=== PATIENT | male | born 1970 | race African-American/Black ===

== ENCOUNTER 2016-09-11 22:30 | Emergency (ER) | payer OTHER ==
--- NOTE | ~2016-09-11 | CR72 ---
[facility] A Service of [facility] RADIOLOGY TEXT RESULTS PATIENT: DL WOODWARD LOCATION: [facility] : 74 UNIT #: [id number] AGE: [address]: Yung Amador MD SEX: M ORDER DR: [id number] [facility]. [place], [place] [address] [id number] MR#: [id number] Acc #: [id number] NAME: DL WOODWARD. : 1970 SEX: M STUDY DATE/TIME: 09/11/2016 22:59 UNIT: [facility] ROOM: STUDY DESCRIPTION: CR Chest Single View Portable Attending Physician: Yung Amador M.D. Referring Physician: David Self Referred Ordering Physician: Ed Joe Hastings M.D. Primary Care Physician: No Primary Care Physician MEDICAL IMAGING REPORT This report is preliminary unless electronic signature is present EXAM Frontal chest, 09/11/2016. INDICATION Chest pain in a 46-year-old male, shortness of air, symptoms 2 weeks. Left-sided chest pain and weakness. TECHNIQUE Frontal chest was performed. COMPARISON STUDIES No comparisons. FINDINGS Cardiac silhouette within normal limits. Vascularity is unremarkable. Lungs are clear. IMPRESSION Borderline cardiac size, otherwise negative frontal chest. We have no comparisons. Dictated by... Burton Souza M.D. THIS IS AN ELECTRONICALLY VERIFIED REPORT Burton Souza M.D. at 09/12/2016 9:58 PM JAROD/seamus TD: 09/12/2016 13:17 JOB #: [id number] [facility] A Service of [facility] RADIOLOGY TEXT RESULTS PATIENT: DL WOODWARD LOCATION: [facility] : 74 UNIT #: [id number] AGE: [address]: Yung Amador MD SEX: M ORDER DR: MEDICAL IMAGING REPORT Page 1 of 1 COPY
--- NOTE | ~2016-09-11 | EKG ---
PATIENT: DL WOODWARD UNIT #: [id number] Ventricular Rate: 91 BPM Atrial Rate: 91 BPM P-R Interval: 168 ms QRS Duration: 98 ms Q-T Interval: 364 ms QTC Calculation(Bezet): 447 ms P Fairplay: 27 degrees Calculated R Fairplay: -6 degrees Calculated T Fairplay: 13 degrees Diagnosis Line: Normal sinus rhythm Diagnosis Line: Minimal voltage criteria for LVH, may be normal Diagnosis Line: variant Diagnosis Line: Otherwise normal ECG Diagnosis Line: No previous ECGs available Diagnosis Line: Confirmed by ANTHONY BRANDT MD ([id number]) on 09/13/2016 Diagnosis Line: 10:57:07 PM INTERPRETING MD: RIKKI PAULA
[2016-09-12] MEDS ORDERED: NO MEDICATIONS (00:48)
[2016-09-12 00:50] LABS: BASOPHIL# 0.1 X10e3 (0-0.3); BASOPHIL% 0.7 % (0-2.5); EOSINOPHIL# 0.1 X10e3 (0-0.7); HEMATOCRIT 46.1 % (38.0-50.0); HEMOGLOBIN 14.9 gm/dL (13.0-16.0); LYMPHOCYTE# 3.4 X10e3 (1.0-3.5); LYMPHOCYTE% 43.2 % (17.0-45.0); MEAN CELL VOLUME 85.1 FL (83-96); MEAN CORPUSCULAR HEMOGLOBIN 27.6 PG (28-34); MEAN CORPUSCULAR HGB CONC 32.4 g/dL (30-36); MEAN PLATELET VOLUME 9.1 FL (6.5-11.5); MONOCYTE# 0.6 X10e3 (0-1.0); MONOCYTE% 7.4 % (3.0-12.0); NEUTROPHIL# 3.8 X10e3 (1.5-7.1); NEUTROPHIL% 47.7 % (40-75); PLATELET COUNT 169 X10e3 (140-420); RED BLOOD COUNT 5.42 X10e (3.90-5.60); WHITE BLOOD COUNT 7.9 X10e3 (4.0-10.5)
[2016-09-12 00:54] LABS: DIFF IND NO
[2016-09-12 00:54] LABS: POC - CKMB 1.5 ng/mL (0.0-7.9); POC - TROPONIN <0.05 ng/mL (<=0.05)
[2016-09-12 01:03] LABS: PROTHROMBIN TIME (PATIENT) 10.6 SECONDS (9.6-11.5)
[2016-09-12 01:14] LABS: ALBUMIN SERUM 4.7 g/dL (3.5-5.0); BILIRUBIN, DIRECT 0.1 mg/dL (0.0-0.2); BILIRUBIN,INDIRECT 0.2 mg/dL (0.0-0.9); BILIRUBIN,TOTAL 0.3 mg/dL (0.2-2.0); BUN/CREATININE RATIO 16.25; CALCIUM SERUM 8.8 mg/dL (8.4-10.2); CREATININE SERUM 0.8 mg/dL (0.6-1.4); POTASSIUM 3.9 mmol/L (3.5-5.1); PROTEIN TOTAL SERUM 7.9 g/dL (6.0-8.3)
[2016-09-12 02:12] LABS: POC - CKMB <1.0 ng/mL (0.0-7.9); POC - TROPONIN <0.05 ng/mL (<=0.05)
== END 2016-09-12 02:55 | disposition home or self-care (01) ==
LOC: CED 22:30
PROVIDERS: Emergency Medicine
DX: R07.89 Other chest pain (principal); Z88.8 Allergy status to other drugs, medicaments and biological substances
CPT/HCPCS: 36415; 71010; 80048; 80076; 82553; 84484; 85025; 85379; 85610; 85730; 93005; 99284